=== PATIENT | male | born 1990 | race American Indian/Alaskan Native ===

== ENCOUNTER 2018-10-11 16:21 | Emergency (ER) | payer MEDICAID, SELFPAY ==
[2018-10-11 16:25] VITALS: BP 109/62; PULSE 88; RESP 14; TEMP 36.6; O2SAT 99
--- NOTE | 2018-10-11 16:53 | DI.RAD.S_ITS ---
PROCEDURE: XR HAND LT MIN 3V INDICATIONS: crush injury TECHNIQUE: 3 views of the hand(s) acquired. COMPARISON: [facility], CR, FINGER LT, 01/08/2013, 11:36. FINDINGS: Bones: There is an age-indeterminate fracture identified involving the scaphoid bone. No suspicious bony lesions. A healed injury involving the 5th metacarpal is noted. An old injury involving the dorsal base of the distal phalanx of the 5th digit is noted, which is unfused. No acute fractures are evident. Soft tissues: No suspicious soft tissue calcifications. No unexpected radiopaque foreign bodies are evident. IMPRESSION: 1. Chronic appearing scaphoid fracture. Please correlate clinically. 2. Healed 5th metacarpal fracture. 3. Unfused fracture involving the dorsal aspect of the distal phalanx of the 5th digit. 4. No definite acute fractures of the hand are appreciated. Dictated by: Herman Donaldson M.D. on 10/11/2018 at 16:24 Approved by: Herman Donaldson M.D. on 10/11/2018 at 16:27
--- NOTE | 2018-10-11 17:21 | ED.UPPEXIN ---
HPI - Extremity Injury (Upper) General Chief Complaint: Extremity Injury, Upper Stated Complaint: LEFT HAND INJURY Time Seen by Provider: 10/11/18 16:30 Source: patient Mode of arrival: ambulatory Limitations: no limitations History of Present Illness HPI narrative: Patient is a 28-year-old male who presents after left hand injury. He had a crush injury to his 5th metacarpal while trying to cut wood. No laceration. He has no numbness or tingling he does have contusion and pain. No decreased range of motion. Right hand dominant MD complaint: injury to: left Related Data Home Medications Medication Instructions Recorded Confirmed levetiracetam [Keppra] 1,000 mg PO BID 10/11/18 10/11/18 Allergies Allergy/AdvReac Type Severity Reaction Status Date / Time No Known Drug Allergies Allergy Verified 10/11/18 17:36 Review of Systems Review of Systems GENERAL: Denies chills,fever HEENT: Denies throat pain RESPIRATORY: Denies dyspnea, cough, wheezing CARDIOVASCULAR: Denies chest pain, palpitations GASTROINTESTINAL: Denies nausea, vomiting MUSCULOSKELETAL: See HPI SKIN: No rash, no laceration, no pruritus NEUROLOGIC: Denies weakness, dizziness, headache, numbness 8 point review of systems is negative except for those stated above and HPI PFSH Medical History Healthy adult (Acute) Comment: Right hand dominant Exam Initial Vital Signs Initial Vital Signs: Vital Signs Temperature 97.9 F 10/11/18 16:25 Pulse Rate 88 10/11/18 16:25 Respiratory Rate 14 10/11/18 16:25 Blood Pressure 109/62 10/11/18 16:25 Pulse Oximetry 99 10/11/18 16:25 GENERAL: Well-appearing, well-nourished and in no acute distress. CARDIOVASCULAR: peripheral pulses in tact, cap refill <2 sec RESPIRATORY: No respiratory distress, speaks in full sentences without difficulty EXTREMITIES: Normal range of motion, no clubbing or edema. Neurovascularly intact Left hand. Hypothenar eminence as contusion is a no laceration. No gross bony deformity. Able to abduct adduct fingers make okay sign with thumb and pinky neurovascularly intact NEUROLOGICAL: Cranial nerves II through XII grossly intact. Normal gait and speech. SKIN: Warm, dry, no petechiae, no rashes or lesions. Course Orders Ordered: ED Orders 10/11/18 16:53 XR hand LT min 3V Stat Discontinued Medications Ibuprofen (Advil) 800 mg PO NOW ONE Stop: 10/11/18 17:37 Vital Signs - 8 hr 10/11/18 16:25 Temperature 97.9 F Pulse Rate 88 Respiratory Rate 14 Blood Pressure 109/62 Pulse Oximetry 99 MDM - Extremity Injury (Upper) Imaging Data Left hand x-ray: Radiologist's impression: PROCEDURE: XR HAND LT MIN 3V INDICATIONS: crush injury TECHNIQUE: 3 views of the hand(s) acquired. COMPARISON: [facility], , FINGER LT, 01/08/2013, 11:36. FINDINGS: Bones: There is an age-indeterminate fracture identified involving the scaphoid bone. No suspicious bony lesions. A healed injury involving the 5th metacarpal is noted. An old injury involving the dorsal base of the distal phalanx of the 5th digit is noted, which is unfused. No acute fractures are evident. Soft tissues: No suspicious soft tissue calcifications. No unexpected radiopaque foreign bodies are evident. IMPRESSION: 1. Chronic appearing scaphoid fracture. Please correlate clinically. 2. Healed 5th metacarpal fracture. 3. Unfused fracture involving the dorsal aspect of the distal phalanx of the 5th digit. 4. No definite acute fractures of the hand are appreciated. Dictated by: Herman Donaldson M.D. on 10/11/2018 at 16:24 Discharge Plan Departure Patient Disposition: Home Clinical Impression: Contusion of hand, left Instructions: Contusion Activity Restrictions/Additional Instructions: *You have been diagnosed with left contusion *What to do: Elevate, ice, x-rays negative for fracture *Continue to take medications as directed Motrin 100 mg every 8 hr if needed for pain *Follow up with your primary care provider in 2-3 days *Return to ER if you should have increased swelling, increased pain or any new, worsening or concerning symptoms Prescriptions: No Action levetiracetam [Keppra] 1,000 mg Tablet 1,000 mg PO BID RF: 0
[2018-10-11] MEDS: IBUPROFEN 400 MG TABLET 800 MG PO (17:41)
== END 2018-10-11 17:50 | disposition home or self-care (01) ==
PROVIDERS: Emergency Provider Emergency Medicine
DX: S60.222A Contusion of left hand, initial encounter (principal); W23.0XXA Caught, crushed, jammed, or pinched between moving objects, initial encounter
CPT/HCPCS: 73130; 99282; 99283

== ENCOUNTER 2023-02-08 13:24 | Emergency (ER) | payer OTHER, SELFPAY ==
[2023-02-08 13:37] VITALS: BP 125/74; PULSE 78; RESP 16; TEMP 36.1; O2SAT 98; BMI 25.8
--- NOTE | 2023-02-08 13:40 | DI.RAD.S_ITS ---
PROCEDURE: XR CHEST 1V INDICATIONS: intermittent Chest pain and shortness of breath TECHNIQUE: One view of the chest was acquired. COMPARISON: [facility], , CHEST 1 VIEW, 06/10/2014, 16:56. FINDINGS: Surgical changes and devices: None. Lungs and pleura: On this semiupright portable chest examination, no large pneumothorax or large pleural effusions are seen. No focal infiltrates are seen. Low lung volumes are noted. This causes a crowded appearance to the lung markings and limits evaluation. Mediastinum: Mediastinal contours appear normal. Heart size is normal. Bones and chest wall: No suspicious bony lesions. Overlying soft tissues appear unremarkable. IMPRESSION: Limited portable chest examination, without a significant cardiopulmonary abnormality identified. Dictated by: Michael De Jesus M.D. on 02/08/2023 at 14:18 Approved by: Michael De Jesus M.D. on 02/08/2023 at 14:18
--- NOTE | 2023-02-08 14:45 | ED_ITS ---
HPI - Chest Pain <SARAH BETH Morris - Last Filed: 02/08/23 16:41> General Chief Complaint: Chest Pain Stated Complaint: Chest Pain and left side pain t-14 Time Seen by Provider: 02/08/23 14:34 Mode of arrival: Ambulatory History of Present Illness HPI narrative: This is a 32-year-old male presents emergency department complaining of shortness of breath with recent upper respiratory infection for the last 2 weeks or longer. He states that he has difficulty taking a deep breath and also has history of seizures. States that he has not aura is switching and has had some of this recently. Denies being a current smoker, denies history of asthma or COPD. Denies any cardiac history. Denies any weakness, difficulty breathing or wheezing. States that he felt twinging like muscle spasms occasionally. Has a history of seizures. Takes Keppra twice a day for his seizure history. Denies any recent seizures. Denies any aura, vision changes, weakness, denies any recent trauma. Related Data Home Medications Medication Instructions Recorded Confirmed levetiracetam 1,000 mg tablet 1,000 mg PO BID 10/11/18 10/11/18 (Keppra) Allergies Allergy/AdvReac Type Severity Reaction Status Date / Time No Known Drug Allergies Allergy Verified 02/08/23 13:39 Review of Systems <SARAH BETH Morris - Last Filed: 02/08/23 16:41> Review of Systems ROS Unobtainable: All systems reviewed & are unremarkable except as noted in HPI and below Patient History <SARAH BETH Morris - Last Filed: 02/08/23 16:41> Medical History Healthy adult Social History Smoking Status: Never smoker Smoking Status: Never smoker Substance Use Type: marijuana and prescription drug Exam <SARAH BETH Morris - Last Filed: 02/08/23 16:41> Initial Vital Signs Initial Vital Signs: Vital Signs Temperature 97 F L 02/08/23 13:37 Pulse Rate 78 02/08/23 13:37 Respiratory Rate 16 02/08/23 13:37 Blood Pressure 125/74 02/08/23 13:37 Pulse Oximetry 98 02/08/23 13:37 Oxygen Delivery Method Room Air 02/08/23 13:37 Reviewed vitals signs and nursing notes. General: Pleasant, sitting upright, in no acute distress, well groomed, afebrile HEENT: symmetrical facial expressions, moist mucous membranes, neck is supple CV: regular rate and rhythm, warm extremities, S1-S2 without ectopy or arrhythmia Respiratory: normal work of breathing, without tachypnea or hypoxia. Without increased work of breathing or abnormal breath sounds GI: abdomen soft, nondistended, without CVA tenderness bilaterally. MSK: moves all extremities, no weakness, normal tone, ambulatory without deficit Skin: brisk capillary refill, without rash or wound Neuro: clear speech and normal cognition, A&O x3, GCS 15, no focal motor or sensation deficits <Alon Linda DO - Last Filed: 02/08/23 16:47> Initial Vital Signs Initial Vital Signs: Vital Signs Temperature 97 F L 02/08/23 13:37 Pulse Rate 78 02/08/23 13:37 Respiratory Rate 16 02/08/23 13:37 Blood Pressure 125/74 02/08/23 13:37 Pulse Oximetry 98 02/08/23 13:37 Oxygen Delivery Method Room Air 02/08/23 13:37 Scores <SARAH BETH Morris - Last Filed: 02/08/23 16:41> HEART Score Heart Score history: Slightly Suspicious Heart Score EKG: Normal Heart Score Age: < 45 years old Heart Score risk factors: No known risk factors Heart Score troponin: < or = to normal limit Heart Score Total: 0 <Alon Linda DO - Last Filed: 02/08/23 16:47> HEART Score Heart Score Total: 0 Course <SARAH BETH Morris - Last Filed: 02/08/23 16:41> Orders Ordered: ED Orders 02/08/23 13:40 Chest [XR chest 1V] Stat 02/08/23 13:51 EKG-12 Lead Stat 02/08/23 14:35 Complete Blood Count AUTO DIFF Stat Comprehensive Metabolic Panel Stat Lipase Stat Magnesium Stat Prothrombin Time INR Stat Troponin & CK Cardiac Panel Stat Vital Signs Vital signs: Vital Signs - 8 hr 02/08/23 13:37 02/08/23 15:56 Temperature 97 F L Pulse Rate 78 78 Respiratory Rate 16 16 Blood Pressure 125/74 128/78 Pulse Oximetry 98 99 Oxygen Delivery Method Room Air Room Air <Alon Linda DO - Last Filed: 02/08/23 16:47> Orders Ordered: ED Orders 02/08/23 13:40 Chest [XR chest 1V] Stat 02/08/23 13:51 EKG-12 Lead Stat 02/08/23 14:35 Complete Blood Count AUTO DIFF Stat Comprehensive Metabolic Panel Stat Lipase Stat Magnesium Stat Prothrombin Time INR Stat Troponin & CK Cardiac Panel Stat Vital Signs Vital signs: Vital Signs - 8 hr 02/08/23 13:37 02/08/23 15:56 Temperature 97 F L Pulse Rate 78 78 Respiratory Rate 16 16 Blood Pressure 125/74 128/78 Pulse Oximetry 98 99 Oxygen Delivery Method Room Air Room Air MDM - Chest Pain <SARAH BETH Morris - Last Filed: 02/08/23 16:41> Lab Data 02/08/23 14:35 02/08/23 14:35 Labs: Lab Results 02/08/23 02/08/23 02/08/23 Range/Units 14:35 14:35 14:35 WBC 7.9 (4.5-11.0) X10^3/uL RBC 4.42 L (4.5-5.9) X10^6/uL Hgb 13.2 L (13.5-17.5) g/dL Hct 38.5 L (41-53) % MCV 87.1 (80-100) fL MCH 29.9 (26-34) PG MCHC 34.3 (30-36) % RDW 14.1 (11.6-14.8) % Plt Count 309 (150-400) X10^3/uL Neut % (Auto) 60.0 (50-75) % Lymph % (Auto) 27.8 (25-40) % Gentry % (Auto) 8.5 (3-14) % Eos % (Auto) 2.4 (2-4) % Baso % (Auto) 1.3 (0-2) % Neut # (Auto) 4700 (6443-6544) /uL Lymph # (Auto) 2200 (1257-5928) /uL Gentry # (Auto) 700 (0-900) /uL Eos # (Auto) 200 (0-450) /uL Baso # (Auto) 100 (0-100) /uL PT 12.6 (10.1-12.7) SECONDS INR 1.1 (0.9-1.3) Sodium 138 (137-145) mmol/L Potassium 4.4 (3.4-5.1) mmol/L Chloride 104 (98-107) mmol/L Carbon Dioxide 30 (22-32) mmol/L BUN 14 (9-20) mg/dL Creatinine 0.88 (0.66-1.25) mg/dL Estimated GFR > 60 (>60) mL/min BUN/Creatinine Ratio 15.9 (6-22) Glucose 99 (70-100) mg/dL Calcium 8.7 (8.4-10.2) mg/dL Magnesium 2.1 (1.6-2.3) mg/dL Total Bilirubin 0.3 (0.2-1.3) mg/dL AST 30 (17-59) IU/L ALT 36 (<50) IU/L Alkaline Phosphatase 86 (38-126) U/L Total Creatine Kinase 100 (55-170) U/L CK-MB (CK-2) TNP CK-MB (CK-2) Rel Index TNP Troponin I < 0.012 (0.01-0.034) ng/mL Total Protein 7.5 (6.3-8.2) g/dL Albumin 4.3 (3.5-5.0) g/dL Globulin 3.2 (1.7-4.1) g/dL Albumin/Globulin Ratio 1.3 (1.0-2.8) Lipase 58 (23-300) U/L Imaging Data Chest x-ray: Radiologist's Impression: PROCEDURE:? XR CHEST 1V ? INDICATIONS:? intermittent Chest pain and shortness of breath ? TECHNIQUE:? One view of the chest was acquired.? ? COMPARISON:? Located [facility], , CHEST 1 VIEW, 06/10/2014, 16:56. ? FINDINGS:? ? Surgical changes and devices:? None.? ? Lungs and pleura:? On this semiupright portable chest examination, no large pneumothorax or large pleural effusions are seen.? No focal infiltrates are seen.? Low lung volumes are noted. This causes a crowded appearance to the lung markings and limits evaluation.? ? Mediastinum:? Mediastinal contours appear normal.? Heart size is normal.? ? Bones and chest wall:? No suspicious bony lesions.? Overlying soft tissues appear unremarkable.? IMPRESSION:? ? Limited portable chest examination, without a significant cardiopulmonary abnormality identified.? ? ? Dictated by: Michael De Jesus M.D. on 02/08/2023 at 14:18 ? ? Approved by: Michael De Jesus M.D. on 02/08/2023 at 14:18 ? ECG Data Interpretation: EKG independently reviewed by myself at 1352 reveals normal sinus rhythm at 75] bpm with regular axis and intervals. No STEMI, ST segment changes, arrhythmia, or acute ischemic changes. MDM Narrative Medical decision making narrative: Chief Complaint: Chest pain with shortness of breath now resolved Multiple etiologies for patient's symptoms considered including, but not limited to: SC, PE, pneumothorax, pneumonia, aortic dissection, pericarditis, muscle strain/sprain, costochondritis, gastritis versus GERD/gastric ulcer, viral process and pleurisy Imaging studies reviewed: Chest x-ray without acute abnormality EKG findings: sinus rhythm without T-wave changes. No prior EKG Pertinent lab studies: CBC and CMP are unremarkable, troponin without elevatio n, On presentation, patient was without diaphoresis, has symmetric pulses, they are without shortness of breath or abnormal breath sounds.Troponin is not elevated, no ischemic change on EKG, and patient's heart score is 0. Pulmonary embolism considered but thought unlikely given no increased work of breathing, tachypnea, hypoxia, tachycardia, and no lifestyle or exogenous risk factors for blood clot. Patient's symptoms improved over duration of stay with above-stated therapies. Findings and discharge diagnosis discussed with patient/family followed by verbalization of understanding, return precautions were discussed and patient family state understanding. The patient?s EKG, CMP, CBC, and Troponin and Chest XR ordered to evaluate the patient, patient's workup was negative for cardiopulmonary abnormality. Social considerations that may affect disposition: none Questions are addressed and there is agreement with the plan and for follow-up. Patient is appropriate for outpatient management. <Alon Linda, DO - Last Filed: 02/08/23 16:47> Lab Data Labs: Lab Results 04/16/23 04/16/23 04/16/23 Range/Units 14:35 14:35 14:35 WBC 7.9 (4.5-11.0) X10^3/uL RBC 4.42 L (4.5-5.9) X10^6/uL Hgb 13.2 L (13.5-17.5) g/dL Hct 38.5 L (41-53) % MCV 87.1 (80-100) fL MCH 29.9 (26-34) PG MCHC 34.3 (30-36) % RDW 14.1 (11.6-14.8) % Plt Count 309 (150-400) X10^3/uL Neut % (Auto) 60.0 (50-75) % Lymph % (Auto) 27.8 (25-40) % Gentry % (Auto) 8.5 (3-14) % Eos % (Auto) 2.4 (2-4) % Baso % (Auto) 1.3 (0-2) % Neut # (Auto) 4700 (6467-7358) /uL Lymph # (Auto) 2200 (3127-0695) /uL Gentry # (Auto) 700 (0-900) /uL Eos # (Auto) 200 (0-450) /uL Baso # (Auto) 100 (0-100) /uL PT 12.6 (10.1-12.7) SECONDS INR 1.1 (0.9-1.3) Sodium 138 (137-145) mmol/L Potassium 4.4 (3.4-5.1) mmol/L Chloride 104 (98-107) mmol/L Carbon Dioxide 30 (22-32) mmol/L BUN 14 (9-20) mg/dL Creatinine 0.88 (0.66-1.25) mg/dL Estimated GFR > 60 (>60) mL/min BUN/Creatinine Ratio 15.9 (6-22) Glucose 99 (70-100) mg/dL Calcium 8.7 (8.4-10.2) mg/dL Magnesium 2.1 (1.6-2.3) mg/dL Total Bilirubin 0.3 (0.2-1.3) mg/dL AST 30 (17-59) IU/L ALT 36 (<50) IU/L Alkaline Phosphatase 86 (38-126) U/L Total Creatine Kinase 100 (55-170) U/L CK-MB (CK-2) TNP CK-MB (CK-2) Rel Index TNP Troponin I < 0.012 (0.01-0.034) ng/mL Total Protein 7.5 (6.3-8.2) g/dL Albumin 4.3 (3.5-5.0) g/dL Globulin 3.2 (1.7-4.1) g/dL Albumin/Globulin Ratio 1.3 (1.0-2.8) Lipase 58 (23-300) U/L Discharge Plan Departure Patient Disposition: Home Clinical Impression: Chest pain, pleuritic Instructions: Costochondritis, DI for Pleurisy Activity Restrictions/Additional Instructions: *You have been diagnosed with chest pain likely related to your upper respiratory illness over the last week or 2. The chest x-ray does not show evidence of pneumonia, this could be like bronchitis or a strain of the cartilage and muscles in your chest. This should start to get better, please stay hydrated. If you still have congestion, take Zyrtec and see if that helps. Your blood work does not show any concerning signs of heart or other organ problems. I think that you are on the tail end of this illness in you could be a little dehydrated today. I hope you feel better, thank you for coming in for evaluation. *What to do: *Please continue to take your regular medications as directed. [ ] New medication prescriptions sent to your pharmacy: [ ] [ ] New medication written as a paper prescription [x ] No new medications given *Please call and schedule follow up with your primary care provider in 2-3 days, at least for an update. Let them know you were seen in the Emergency Department for the above problem. We will electronically transmit a record of today's note if your PCP or specialist is in our system. *If you do not have a primary care provider please contact [phone] to establish care with one of the [facility] primary care providers. *Return to the Emergency Department for worsening symptoms, inability to keep liquids down, fever greater than 101F, chills, or other concerning symptom. Prescriptions: No Action levetiracetam [Keppra] 1,000 mg Tablet 1,000 mg PO BID Stand Alone Forms: Patient Portal/API <Alon Linda DO - Last Filed: 04/16/23 16:47> Cosign ED Attending Cosignature Attestation: Dr Linda Co-Sign Statement: I was available for consultation during this patient's emergency department visit. This chart is signed by myself for administrative purposes only. I did not have direct contact with this patient during this visit. They were seen independently by the APC.
[2023-02-08 14:51] LABS: Add Manual Diff / Slide Review NO; Basophils Absolute Auto 100 /uL (0-100); Basophils Percent Auto 1.3 % (0-2); Eosinophils Absolute Auto 200 /uL (0-450); Eosinophils Percent Auto 2.4 % (2-4); Hematocrit 38.5 % (41-53); Hemoglobin 13.2 g/dL (13.5-17.5); Lymphocytes Absolute Auto 2200 /uL (1100-4500); Lymphocytes Percent Auto 27.8 % (25-40); Mean Corpuscular HGB Conc 34.3 % (30-36); Mean Corpuscular Hemoglobin 29.9 PG (26-34); Mean Corpuscular Volume 87.1 fL (80-100); Monocytes Absolute Auto 700 /uL (0-900); Monocytes Percent Auto 8.5 % (3-14); Neutrophils Absolute Auto 4700 /uL (1500-7000); Platelet Count 309 X10^3/uL (150-400); Red Blood Cell Count 4.42 X10^6/uL (4.5-5.9); Red Cell Distribution Width 14.1 % (11.6-14.8); White Blood Cell Count 7.9 X10^3/uL (4.5-11.0)
[2023-02-08 15:02] LABS: INR 1.1 (0.9-1.3); Prothrombin Time 12.6 SECONDS (10.1-12.7)
[2023-02-08 15:07] LABS: Alanine Aminotransferase 36 IU/L (<50); Albumin 4.3 g/dL (3.5-5.0); Albumin Globulin Ratio 1.3 (1.0-2.8); Alkaline Phosphatase 86 U/L (38-126); Aspartate Aminotransferase 30 IU/L (17-59); BUN Creatinine Ratio 15.9 (6-22); Bilirubin Total 0.3 mg/dL (0.2-1.3); Blood Urea Nitrogen 14 mg/dL (9-20); Calcium 8.7 mg/dL (8.4-10.2); Carbon Dioxide 30 mmol/L (22-32); Chloride 104 mmol/L (98-107); Creatine Kinase 100 U/L (55-170); Estimated Glomerular Filt Rate > 60 mL/min (>60); Globulin 3.2 g/dL (1.7-4.1); Glucose 99 mg/dL (70-100); HEMOLYSIS < 15 (0-50); Lipase 58 U/L (23-300); Magnesium 2.1 mg/dL (1.6-2.3); Potassium 4.4 mmol/L (3.4-5.1); Sodium 138 mmol/L (137-145); Total Protein 7.5 g/dL (6.3-8.2)
[2023-02-08 15:19] LABS: Troponin I < 0.012 ng/mL (0.01-0.034)
[2023-02-08 15:56] VITALS: BP 128/78; PULSE 78; RESP 16; O2SAT 99
== END 2023-02-08 15:58 | disposition home or self-care (01) ==
PROVIDERS: Emergency Medicine; Emergency Provider Nurse Practitioner Critical Care Medicine
DX: R07.89 Other chest pain (principal); R06.02 Shortness of breath
CPT/HCPCS: 36415; 71045; 80053; 82550; 83690; 83735; 84484; 85025; 85610; 93005; 93010; 99284

== ENCOUNTER → 2025-04-19 08:41 | Outpatient (CLI) | payer OTHER, SELFPAY ==
--- NOTE | 2025-04-19 08:44 | DI.US.S_ITS ---
PROCEDURE: US ABDOMEN LIMITED INDICATIONS: elevated liver enzymes TECHNIQUE: Real-time scanning was performed of the abdominal and retroperitoneal organs, with image documentation. COMPARISON: None. FINDINGS: Liver: Liver is normal in size and homogeneous in echotexture. Gallbladder: Cholelithiasis. No wall thickening. No pericholecystic edema. Negative sonographic Montiel's sign. Biliary ducts: Intrahepatic bile ducts are non-dilated. Extrahepatic bile duct caliber measures 4 mm. Normal is 6-7 mm or less in diameter, or 10 mm or less post-cholecystectomy. Pancreas: Visualized portions of the pancreas are sonographically normal. Miscellaneous: No free abdominal fluid. IMPRESSION: Cholelithiasis without wall thickening or adjacent fat stranding to suggest acute cholecystitis. Dictated by: Jamie Lizama M.D. on 04/19/2025 at 15:06 Approved by: Jamie Lizama M.D. on 04/19/2025 at 15:07
== END ==
LOC: US 08:42
PROVIDERS: Referring Provider Family Medicine; Visit Provider Family Medicine
DX: K80.20 Calculus of gallbladder without cholecystitis without obstruction (principal); R74.8 Abnormal levels of other serum enzymes
CPT/HCPCS: 76705